=== PATIENT | male | born 1950 | race Hispanic/Latino ===

== ENCOUNTER 2017-08-20 05:54 | Emergency (ER) | payer MEDICARE, OTHER ==
[~2017-08-20] VITALS: Ht 185.4 cm; Wt 81.6 kg
--- NOTE | 2017-08-20 07:09 | Diagnostic Imaging Report ---
PROCEDURE:WRIST COMPLETE LEFT TECHNIQUE:AP, lateral and oblique views left wrist INDICATION:Left wrist pain status post fall COMPARISON:None. FINDINGS: The left wrist is intact and in anatomic alignment. Joint spaces are maintained. Normal bone mineralization. Grossly intact soft tissues. No foreign bodies. CONCLUSION: No evidence of acute traumatic injury. Dictated by: Jj Leung M.D. on 08/20/2017 at 7:19 Electronically approved by: Jj Leung M.D. on 08/20/2017 at 7:19
--- NOTE | 2017-08-20 07:11 | Diagnostic Imaging Report ---
PROCEDURE:HAND 3+ VIEWS LEFT TECHNIQUE:AP, lateral and oblique views left hand INDICATION:Left hand pain status post fall COMPARISON:None. FINDINGS: Nondisplaced fracture at the base of the ring finger metacarpal. Remaining regional skeleton is intact and in anatomic alignment. Joint spaces are maintained. Normal bone mineralization. No definite articular extension. CONCLUSION: Nondisplaced fracture at the proximal shaft of the ring finger metacarpal. No definite articular extension. Dictated by: Jj Leung M.D. on 08/20/2017 at 7:21 Electronically approved by: Jj Leung M.D. on 08/20/2017 at 7:21
[2017-08-20] MEDS: TETANUS/DIPHTHERIA TOX ADULT 0.5 ML SYR IM ONE ×2 (07:40→07:45)
[2017-08-20] MEDS ORDERED: HYDROCODONE/APAP 5MG-325MG TAB PO ONE (07:45)
[2017-08-20] MEDS ORDERED: BACITRACIN ZINC 0.9GM TP ONE (07:45)
--- NOTE | 2017-08-20 08:17 | Diagnostic Imaging Report ---
PROCEDURE:KNEE LEFT THREE VIEWS TECHNIQUE:AP, lateral and oblique views left knee INDICATION:Left knee pain COMPARISON:None. FINDINGS: The left knee is intact and in anatomic alignment. Pre-compartment joint space narrowing with trace patellar osteophytosis. Medial and lateral compartment chondrocalcinosis. Moderate regional atherosclerosis and arteriosclerosis. No joint effusion. Intact soft tissues. CONCLUSION: Chondrocalcinosis suggesting CPPD arthropathy and mild degenerative change. Otherwise, no acute abnormality. Dictated by: Jj Leung M.D. on 08/20/2017 at 8:26 Electronically approved by: Jj Leung M.D. on 08/20/2017 at 8:26
[2017-08-20] MEDS ORDERED: ULTRAM 50MG50 MG PO (09:14)
[2017-08-20] MEDS ORDERED: PROMETHAZINE HC25 M1 PO (09:14)
== END 2017-08-20 09:41 | disposition home or self-care (01) ==
LOC: ER 05:54
DX: S62.355A Nondisplaced fracture of shaft of fourth metacarpal bone, left hand, initial encounter for closed fracture (principal); S80.212A Abrasion, left knee, initial encounter; W01.0XXA Fall on same level from slipping, tripping and stumbling without subsequent striking against object, initial encounter; Y92.488 Other paved roadways as the place of occurrence of the external cause; I10 Essential (primary) hypertension; E11.9 Type 2 diabetes mellitus without complications
CPT/HCPCS: 90471; 90714; 99283